=== PATIENT | female | born 1945 | race Caucasian/White ===

== ENCOUNTER 2021-10-02 14:07 | Emergency (ER) | payer MEDICARE ==
--- NOTE | 2021-10-02 14:57 | ED ---
General Adult HPI - General Chief complaint: Shortness of Breath Stated complaint: SOB Time Seen by Provider: 10/02/21 14:37 Source: patient, RN notes reviewed Mode of arrival: ambulatory Limitations: no limitations - History of Present Illness Initial comments: Patient is a pleasant 76-year-old female presenting to the emergency Department with dyspnea and rapid heart rate. Onset of symptoms was 3 days ago. Patient did have an episode when she stood up and felt lightheaded and believes she may have passed out. No chest pain. Patient does feel short of breath. No leg pain or leg swelling. Patient does have history of similar symptoms previously associated with atrial fibrillation. Patient is on medication for this including beta bj metoprolol as well as anticoagulant. - Related Data Home Medications Medication Instructions Recorded Confirmed Cephalexin [Keflex] 500 mg PO Q12HR 10/02/21 10/02/21 DULoxetine HCL [Cymbalta] 30 mg PO DAILY 10/02/21 10/02/21 Exenatide Microspheres [Bydureon 2 mg SQ WE 10/02/21 10/02/21 Bcise Auto-Injector] Insulin Glargine,Hum.rec.anlog 70 units SQ DAILY 10/02/21 10/02/21 [Toujeo Solostar] Levothyroxine Sodium [Synthroid] 100 mcg PO DAILY 10/02/21 10/02/21 Metoprolol Tartrate [Lopressor] 50 mg PO BID 10/02/21 10/02/21 Midodrine HCl [ProAmantine] 2.5 mg PO TID 10/02/21 10/02/21 Pantoprazole [Protonix] 40 mg PO DAILY 10/02/21 10/02/21 Pioglitazone [Actos] 15 mg PO DAILY 10/02/21 10/02/21 Rosuvastatin [Crestor] 20 mg PO HS 10/02/21 10/02/21 Warfarin [Coumadin] 5 mg PO HS 10/02/21 10/02/21 lisinopriL [Zestril] 2.5 mg PO DAILY 10/02/21 10/02/21 metFORMIN HCL 1,000 mg PO BID 10/02/21 10/02/21 traZODone HCL [Desyrel] 100 mg PO HS 10/02/21 10/02/21 Allergies Allergy/AdvReac Type Severity Reaction Status Date / Time diltiazem [From Cardizem] Allergy Rash/Hives Verified 10/02/21 15:25 Review of Systems ROS Statement: Those systems with pertinent positive or pertinent negative responses have been documented in the HPI. ROS Other: All systems not noted in ROS Statement are negative. Constitutional: Denies: fever Eyes: Denies: eye pain ENT: Denies: ear pain Respiratory: Reports: dyspnea Cardiovascular: Reports: as per HPI. 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 Past Psychological History: No Psychological Hx Reported Smoking Status: Former smoker Past Alcohol Use History: None Reported Past Drug Use History: None Reported General Exam Limitations: no limitations General appearance: alert, in no apparent distress Head exam: Present: normocephalic Eye exam: Present: normal appearance Neck exam: Present: normal inspection Respiratory exam: Present: normal lung sounds bilaterally Cardiovascular Exam: Present: tachycardia, irregular rhythm Expanded Peripheral pulses: 2+: Radial (R), Radial (L), Dorsalis Pedis (R), Dorsalis Pedis (L) GI/Abdominal exam: Present: soft. Absent: tenderness Extremities exam: Present: normal inspection. 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 Patient was placed on imagery intelligence secondary to arrhythmia and to monitor for further arrhythmias and tachycardia. EKG Findings - EKG Comments: EKG Findings:: A. fib with RVR, rate 133. QRS 78. QT 338. QTC 503. Normal axis. Septal Q waves. Nonspecific T waves. Medical Decision Making - Medical Decision Making Patient reevaluated and resting comfortably in bed. Heart rate 88. Patient feeling much better following having her heart rate improved. Patient updated regarding results. Patient refuses admission or further evaluation is requesting discharge home. Discussion had with patient regarding monoclonal antibodies and she is receptive to receiving those. - Lab Data Result diagrams: 10/02/21 14:59 10/02/21 14:59 Lab Results 10/02/21 10/02/21 10/02/21 Range/Units 14:59 14:59 14:59 WBC 8.4 (3.8-10.6) k/uL RBC 4.90 (3.80-5.40) m/uL Hgb 15.6 (11.4-16.0) gm/dL Hct 44.5 (34.0-46.0) % MCV 90.8 (80.0-100.0) fL MCH 31.8 (25.0-35.0) pg MCHC 35.0 (31.0-37.0) g/dL RDW 14.1 (11.5-15.5) % Plt Count 247 (150-450) k/uL MPV 8.7 Neutrophils % 69 % Lymphocytes % 20 % Monocytes % 4 % Eosinophils % 4 % Basophils % 0 % Neutrophils # 5.8 (1.3-7.7) k/uL Lymphocytes # 1.7 (1.0-4.8) k/uL Monocytes # 0.4 (0-1.0) k/uL Eosinophils # 0.3 (0-0.7) k/uL Basophils # 0.0 (0-0.2) k/uL PT 16.4 H (9.0-12.0) sec INR 1.6 H (<1.2) APTT 31.6 H (22.0-30.0) sec Sodium 138 (137-145) mmol/L Potassium 4.2 (3.5-5.1) mmol/L Chloride 103 (98-107) mmol/L Carbon Dioxide 15 L (22-30) mmol/L Anion Gap 20 mmol/L BUN 24 H (7-17) mg/dL Creatinine 1.30 H (0.52-1.04) mg/dL Est GFR (CKD-EPI)AfAm 46 (>60 ml/min/1.73 sqM) Est GFR (CKD-EPI)NonAf 40 (>60 ml/min/1.73 sqM) Glucose 189 H (74-99) mg/dL Calcium 10.5 H (8.4-10.2) mg/dL Magnesium 1.8 (1.6-2.3) mg/dL Total Bilirubin 0.4 (0.2-1.3) mg/dL AST 40 H (14-36) U/L ALT 28 (4-34) U/L Alkaline Phosphatase 65 (38-126) U/L Troponin I (0.000-0.034) ng/mL NT-Pro-B Natriuret Pep pg/mL Total Protein 8.2 (6.3-8.2) g/dL Albumin 5.0 (3.5-5.0) g/dL TSH 3.080 (0.465-4.680) mIU/L Free T4 1.65 (0.78-2.19) ng/dL Free T3 pg/mL 3.2 (2.8-5.3) pg/ml Coronavirus (PCR) (Not Detectd) 10/02/21 10/02/21 10/02/21 Range/Units 14:59 14:59 16:07 WBC (3.8-10.6) k/uL RBC (3.80-5.40) m/uL Hgb (11.4-16.0) gm/dL Hct (34.0-46.0) % MCV (80.0-100.0) fL MCH (25.0-35.0) pg MCHC (31.0-37.0) g/dL RDW (11.5-15.5) % Plt Count (150-450) k/uL MPV Neutrophils % % Lymphocytes % % Monocytes % % Eosinophils % % Basophils % % Neutrophils # (1.3-7.7) k/uL Lymphocytes # (1.0-4.8) k/uL Monocytes # (0-1.0) k/uL Eosinophils # (0-0.7) k/uL Basophils # (0-0.2) k/uL PT (9.0-12.0) sec INR (<1.2) APTT (22.0-30.0) sec Sodium (137-145) mmol/L Potassium (3.5-5.1) mmol/L Chloride (98-107) mmol/L Carbon Dioxide (22-30) mmol/L Anion Gap mmol/L BUN (7-17) mg/dL Creatinine (0.52-1.04) mg/dL Est GFR (CKD-EPI)AfAm (>60 ml/min/1.73 sqM) Est GFR (CKD-EPI)NonAf (>60 ml/min/1.73 sqM) Glucose (74-99) mg/dL Calcium (8.4-10.2) mg/dL Magnesium (1.6-2.3) mg/dL Total Bilirubin (0.2-1.3) mg/dL AST (14-36) U/L ALT (4-34) U/L Alkaline Phosphatase (38-126) U/L Troponin I 0.014 (0.000-0.034) ng/mL NT-Pro-B Natriuret Pep 2950 pg/mL Total Protein (6.3-8.2) g/dL Albumin (3.5-5.0) g/dL TSH (0.465-4.680) mIU/L Free T4 (0.78-2.19) ng/dL Free T3 pg/mL (2.8-5.3) pg/ml Coronavirus (PCR) Detected A (Not Detectd) - Radiology Data Radiology results: image reviewed (Chest chest x-ray shows some possible atelectasis) Critical Care Time Critical Care Time: Yes Total Critical Care Time: 32 Disposition Clinical Impression: Atrial fibrillation with RVR, COVID-19, Syncope Disposition: Left Against Medical Advice Additional Instructions: Please do follow-up with your primary care physician in the next day or 2 for recheck. [id number] vitamin C, vitamin D, and zinc. Icat-ioj-mprldyx melatonin. Return for increased heart rate, passing out, difficulty breathing, worsening or change in symptoms or any other concerns. Is patient prescribed a controlled substance at d/c from ED?: No Referrals: Adeel Elder MD [Primary Care Provider] - 1-2 days
[2021-10-02 15:10] LABS: Basophils % (A) 0 %; Eosinophils # (A) 0.3 k/uL (0-0.7); Eosinophils % (A) 4 %; HCT 44.5 % (34.0-46.0); HGB 15.6 gm/dL (11.4-16.0); Lymphocytes # (A) 1.7 k/uL (1.0-4.8); Lymphocytes % (A) 20 %; MCH 31.8 pg (25.0-35.0); MCV 90.8 fL (80.0-100.0); Mean Platelet Volume 8.7; Monocytes # (A) 0.4 k/uL (0-1.0); Monocytes % (A) 4 %; Neutrophils # (A) 5.8 k/uL (1.3-7.7); Neutrophils % (A) 69 %; Platelet Count 247 k/uL (150-450); RDW 14.1 % (11.5-15.5); WBC 8.4 k/uL (3.8-10.6)
[2021-10-02] MEDS: METOPROLOL TARTRATE 5 MG/5 ML VIAL IVP SCH ×2 (15:18→18:24)
[2021-10-02 15:20] VITALS: RESP 18
[2021-10-02 15:23] LABS: INR 1.6 (<1.2); Partial Thromboplastin Time 31.6 sec (22.0-30.0); Prothrombin Time 16.4 sec (9.0-12.0)
[2021-10-02 15:32] LABS: Calcium 10.5 mg/dL (8.4-10.2); Magnesium 1.8 mg/dL (1.6-2.3); Potassium 4.2 mmol/L (3.5-5.1); Total Bilirubin 0.4 mg/dL (0.2-1.3); Total Protein 8.2 g/dL (6.3-8.2)
[2021-10-02 16:01] LABS: T4, Free (Free Thyroxine) 1.65 ng/dL (0.78-2.19)
--- NOTE | 2021-10-02 16:47 | XR ---
EXAMINATION TYPE: XR chest 1V portable DATE OF EXAM: 10/02/2021 COMPARISON: None INDICATION: Dysrhythmia short of breath TECHNIQUE: Single frontal view of the chest is obtained. FINDINGS: The heart size is normal. The pulmonary vasculature is normal. Some minimal subsegmental infiltrate may be at the lung bases. Correlate for atelectasis IMPRESSION: 1. There may be some mild subsegmental atelectasis at the lung bases. 2. Frontal chest is otherwise unremarkable.
[2021-10-02] MEDS ORDERED: WARFARIN 2.5 MG TAB PO STA (17:22)
[2021-10-02] MEDS ORDERED: SODIUM CHLORIDE 0.9% 50 ML IVPB ONE (18:00)
[2021-10-02] MEDS ORDERED: CASIRIVIMAB (REGN10933) (EUA) 600 MG, IMDEVIMAB (REGN10987) (EUA) 600 MG in SODIUM CHLO... IVPB ONE (18:00)
[2021-10-02 18:54] VITALS: BP 110/67; PULSE 86; TEMP 98.6
== END 2021-10-02 19:17 | disposition left against medical advice (07) ==
LOC: EC 14:07
DX: I48.91 Unspecified atrial fibrillation (principal); U07.1 COVID-19; R55 Syncope and collapse; Z79.01 Long term (current) use of anticoagulants; Z79.4 Long term (current) use of insulin; Z79.890 Hormone replacement therapy; Z79.899 Other long term (current) drug therapy; Z87.891 Personal history of nicotine dependence
CPT/HCPCS: 36415; 93005; 84439; 84481; 83880; 80053; 83735; 84443; 84484; 85025; 85610; 85730; 87635; 71045; 99291; 96365; Q0243